=== PATIENT | female | born 1945 | race Caucasian/White ===

== ENCOUNTER 2018-03-31 18:13 | Inpatient (IN) | payer MEDICARE ==
[~2018-03-31] VITALS: Ht 165.1 cm; Wt 74.1 kg
--- NOTE | ~2018-03-31 | CN ---
PATIENT NAME:GABRIELA BATES MEDICAL RECORD: [id number] : 49 LOCATION:D. D.2101 ADMIT DATE: 04/01/18 ACCOUNT: [id number] CONSULTING PHYSICIAN: JULIUS MAYA MD REFERRING PHYSICIAN: BIENVENIDO CRAFT MD DATE OF CONSULTATION: 04/02/2018 IDENTIFYING DATA: The patient is 73 years old and she is admitted to the hospital on a voluntary basis. CHIEF COMPLAINT: Hyperglycemia. HISTORY OF PRESENT ILLNESS: The patient was found at home yesterday by her niece. The patient was naked and yelling into the phone at no one. The phone was not connected. The patient was brought to the hospital quite confused and agitated and had a blood sugar of almost 500. She was initially stabilized there with a blood sugar reducing down to 300 and was referred for geropsych admission. At that time, I declined her because of her blood sugar. She was admitted to medicine where she has been further stabilized and she has a blood sugar this morning of 250. I saw her this morning, she is awake, alert and fully oriented. She has vague recollections about yesterday and says nothing like this has ever happened. She denies vegetative depressive symptoms, substance abuse, or psychotic symptoms. She confessed that she is not very good about following her diet even though she has been a diabetic for many years. She lives alone and is . She has no children. She has 2 brothers, one of whom is local and then a niece who regularly look in on her. She does not keep her own yard, but does her own housework even though she says that somewhat difficult at times. She manages her own financial affairs which are not complex, but she has a social security check and she pays her own utility bills and insurance premiums and has not had any problems doing so. She drives and takes herself to appointments in the grocery store, and cooks and prepares meals independently. MENTAL STATUS EXAMINATION: The patient is awake, alert and oriented to person, place, time and situation. Her mood is euthymic. Her affect is appropriate. Thought processes are circumstantial. She does have some mild cognitive impairment of her memory, concentration, and abstraction abilities. She has no thoughts of harming herself or others as well as no overt psychotic symptoms. ASSESSMENT: 1. Delirium secondary to hyperglycemia. 2. Rule out dementia. PLAN: The patient has a long history of diabetes. The symptoms yesterday may well be associated with an underlying cognitive impairment. She is denying any thoughts of harming herself or others and shows no evidence of acute or direct dangerousness. ASSESSMENT: Delirium. PLAN: The patient should be transferred home once medically stable. She does not meet criteria for inpatient psychiatric care based upon this one event. I think there are important thing she and her family should do regarding planning for her future and she has promised that she will try to do better in following her diabetic regimen. She is not psychotic. She is not suicidal or homicidal, CONSULT REPORT [id number] GABRIELA BATES nor she grossly disorganized or disabled. This simply is not a case that meets admission criteria and I did not even discuss the possibility with her, but I suspect she would have objected to coming to a psychiatric unit. Follow up should be with her primary care physician. I would recommend outpatient testing for cognitive deficits. TRANSINT:[id number] Voice Confirmation ID: [id number] DOCUMENT ID: [id number] JULIUS MAYA MD at 1428 CC: [id number] DICTATION DATE: 04/02/18 1058 [employer]IVE [employer] TEAM: 04/02/18 1332 ADM IN [facility] [address] [place] [address]
[2018-03-31] MEDS ORDERED: ZOCOR40 MG PO (18:16)
[2018-03-31] MEDS ORDERED: TOVIAZ8 MG PO (18:16)
[2018-03-31] MEDS ORDERED: ONGLYZA5 MG PO (18:16)
[2018-03-31] MEDS ORDERED: GLUCOPHAGE500 MG PO (18:17)
[2018-03-31 18:47] LABS: BASOPHILS 0.2 % (0-2); EOSINOPHILS 0.2 % (0-7); HEMATOCRIT 38.3 % (36.0-48.0); HEMOGLOBIN 12.7 g/dL (12-16); LYMPHOCYTES 15.7 % (15-50); MCH 28.9 pg (26.0-34.0); MCHC 33.2 g/dL (31.0-37.0); MEAN PLATELET VOLUME 11.1 fL (7.4-10.4); MONOCYTES 12.1 % (2-11); NEUTROPHILS 71.8 % (40-80); PLATELET COUNT 99 10x3/uL (130-400); RDW 13.1 % (11.5-14.5); WBC 5.1 10x3/uL (4.8-10.8)
[2018-03-31 19:07] LABS: ALBUMIN 2.8 g/dL (3.4-5.0); ANION GAP 14.4 mmol/L (8-16); BILIRUBIN - TOTAL 0.7 mg/dL (0.2-1.3); CREATININE - SERUM 1.5 mg/dL (0.6-1.3); POTASSIUM - SERUM 4.4 mmol/L (3.5-5.1); PROTEIN - SERUM 7.2 g/dL (6.4-8.2)
[2018-03-31 19:17] LABS: PLATELET ESTIMATE DECREASED
[2018-03-31 19:30] VITALS: BP 146/50
[2018-03-31 21:19] LABS: APPEARANCE CLEAR (CLEAR); COLOR YELLOW (YELLOW); SPECIFIC GRAVITY 1.015 (1.005-1.020)
[2018-03-31 21:21] LABS: BILIRUBIN NEGATIVE (NEGATIVE); GLUCOSE 1000 mg/dL (NEGATIVE); KETONE MODERATE mg/dL (NEGATIVE); NITRITE NEGATIVE (NEGATIVE); PROTEIN NEGATIVE (NEGATIVE); UROBILINOGEN NORMAL (NORMAL)
[2018-03-31 21:22] LABS: EPITHELIAL CELLS 0-5 /hpf (0-5); RED CELLS - URINE 0-5 /hpf (0-5); WHITE CELLS - URINE 0-5 /hpf (0-5)
[2018-03-31 21:24] LABS: BACTERIA MANY /hpf (NONE SEEN)
[2018-03-31 21:30] VITALS: BP 166/78
[2018-03-31 23:00] VITALS: BP 131/58
[2018-04-01] VITALS (13 sets, daily range): BP systolic 119–160; BP diastolic 59–84; BMI 23.3
[2018-04-02 04:00] VITALS: BP 128/60
[2018-04-02 05:41] LABS: BASOPHILS 0.1 % (0-2); EOSINOPHILS 2.6 % (0-7); HEMATOCRIT 34.7 % (36.0-48.0); HEMOGLOBIN 11.6 g/dL (12-16); IMMATURE GRANULOCYTES 0.3 % (0-5); LYMPHOCYTES 23.4 % (15-50); MCH 28.4 pg (26.0-34.0); MCHC 33.4 g/dL (31.0-37.0); MEAN PLATELET VOLUME 11.1 fL (7.4-10.4); NEUTROPHILS 61.6 % (40-80); PLATELET COUNT 115 10x3/uL (130-400); RBC 4.09 10x6/uL (4.00-5.40); RDW 12.9 % (11.5-14.5)
[2018-04-02 05:47] LABS: MCV 84.8 fL (80.0-100.0)
[2018-04-02 06:36] LABS: ANION GAP 10.8 mmol/L (8-16); BILIRUBIN - TOTAL 0.61 mg/dL (0.2-1.3); CALCIUM 7.9 mg/dL (8.5-10.1); CREATININE - SERUM 1.2 mg/dL (0.6-1.3); MAGNESIUM - SERUM 1.7 mg/dL (1.8-2.4); POTASSIUM - SERUM 3.8 mmol/L (3.5-5.1); PROTEIN - SERUM 5.5 g/dL (6.4-8.2)
[2018-04-02 08:37] VITALS: BP 141/94
[2018-04-02 12:27] VITALS: BP 120/69
[2018-04-02 20:00] VITALS: BP 112/54
[2018-04-03] VITALS: BP 118/47
[2018-04-03 04:00] VITALS: BP 132/55
[2018-04-03 05:08] LABS: BASOPHILS 0.3 % (0-2); HEMATOCRIT 33.6 % (36.0-48.0); HEMOGLOBIN 11.2 g/dL (12-16); IMMATURE GRANULOCYTES 0.6 % (0-5); LYMPHOCYTES 21.7 % (15-50); MCH 28.2 pg (26.0-34.0); MCHC 33.3 g/dL (31.0-37.0); MCV 84.6 fL (80.0-100.0); MEAN PLATELET VOLUME 11.6 fL (7.4-10.4); MONOCYTES 12.5 % (2-11); NEUTROPHILS 61.9 % (40-80); PLATELET COUNT 115 10x3/uL (130-400); RBC 3.97 10x6/uL (4.00-5.40); WBC 6.3 10x3/uL (4.8-10.8)
[2018-04-03 05:47] LABS: ALBUMIN 2.1 g/dL (3.4-5.0); ANION GAP 10.6 mmol/L (8-16); BILIRUBIN - TOTAL 0.53 mg/dL (0.2-1.3); CARBON DIOXIDE 25.3 mmol/L (21.0-32.0); CREATININE - SERUM 1.1 mg/dL (0.6-1.3); MAGNESIUM - SERUM 1.7 mg/dL (1.8-2.4); POTASSIUM - SERUM 3.9 mmol/L (3.5-5.1); PROTEIN - SERUM 5.4 g/dL (6.4-8.2)
[2018-04-03 09:39] VITALS: BP 131/68
[2018-04-03 12:29] VITALS: Ht 165.1 cm; Wt 74.1 kg
[2018-04-03 12:32] VITALS: BP 151/65
[2018-04-03 17:05] VITALS: BP 136/58
[2018-04-03 20:36] VITALS: BP 156/59
[2018-04-04 04:59] VITALS: BP 144/78
[2018-04-04 06:06] LABS: BASOPHILS 0.2 % (0-2); EOSINOPHILS 3.1 % (0-7); HEMOGLOBIN 11.4 g/dL (12-16); IMMATURE GRANULOCYTES 0.5 % (0-5); LYMPHOCYTES 32.6 % (15-50); MCH 28.5 pg (26.0-34.0); MCHC 33.5 g/dL (31.0-37.0); NEUTROPHILS 51.6 % (40-80); PLATELET COUNT 135 10x3/uL (130-400); RDW 13.1 % (11.5-14.5); WBC 5.8 10x3/uL (4.8-10.8)
[2018-04-04 06:29] LABS: ANION GAP 12.5 mmol/L (8-16); BILIRUBIN - TOTAL 0.46 mg/dL (0.2-1.3); CALCIUM 7.9 mg/dL (8.5-10.1); CARBON DIOXIDE 24.3 mmol/L (21.0-32.0); POTASSIUM - SERUM 3.8 mmol/L (3.5-5.1); PROTEIN - SERUM 5.5 g/dL (6.4-8.2)
[2018-04-04 08:27] VITALS: BP 155/73
[2018-04-04] MEDS ORDERED: LEVAQUIN750 MG PO (10:50)
[2018-04-04] MEDS ORDERED: FLORAJEN3 CAPS460 MG PO (10:51)
[2018-04-04] MEDS ORDERED: PROTONIX40 MG PO (10:51)
[2018-04-04 12:02] VITALS: BP 155/73
== END 2018-04-04 18:49 | disposition home health service (06) | DRG 637 ==
LOC: OBSVTIME → D.ER 18:13 → D.EDHOLD 04-01 07:14 → D.M2 04-01 07:14 → D.ER 04-01 08:28 → D.M2 04-01 08:28 → D.EDHOLD 04-01 08:28 → OBSVTIME 04-01 08:28 → D.M2 04-01 09:39 → D.EDHOLD 04-01 09:39 → D.M2 04-01 16:08
PROVIDERS: Family Medicine; Family Medicine Adult Medicine
DX: E13.65 Other specified diabetes mellitus with hyperglycemia (principal); G93.41 Metabolic encephalopathy; N39.0 Urinary tract infection, site not specified; N17.9 Acute kidney failure, unspecified; D69.6 Thrombocytopenia, unspecified

== ENCOUNTER 2019-06-01 12:48 | Emergency (ER) | payer MEDICARE ==
[~2019-06-01] VITALS: Ht 165.1 cm; Wt 72.7 kg
[~2019-06-01 12:48] MED LIST: FLORAJEN3 CAPS460 MG PO; GLUCOPHAGE500 MG PO; LEVAQUIN750 MG PO; ONGLYZA5 MG PO; PROTONIX40 MG PO; TOVIAZ8 MG PO; ZOCOR40 MG PO
[2019-06-01 12:56] VITALS: Ht 165.1 cm; Wt 72.7 kg
[2019-06-01] MEDS ORDERED: HYDROCODON-ACE1 EAC7 PO (15:32)
[2019-06-01 16:03] VITALS: BP 178/84
== END 2019-06-01 16:05 | disposition home or self-care (01) ==
LOC: D.ER 12:48
DX: M54.2 Cervicalgia (principal); V89.2XXA Person injured in unspecified motor-vehicle accident, traffic, initial encounter

== ENCOUNTER 2019-09-19 13:52 | Emergency (ER) | payer MEDICARE ==
[~2019-09-19] VITALS: Ht 165.1 cm; Wt 2.1 kg
[~2019-09-19 13:52] MED LIST changes: +HYDROCODON-ACE1 EAC7 PO
[2019-09-19 14:26] LABS: CALC OSMOLALITY 289 mosm/kg (275-300); CALCIUM 9.3 mg/dL (8.5-10.1); CARBON DIOXIDE 29.8 mmol/L (21.0-32.0); CHLORIDE - SERUM 102 mmol/L (98-107); CREATININE - SERUM 1.4 mg/dL (0.6-1.3); POTASSIUM - SERUM 4.7 mmol/L (3.5-5.1); SODIUM 138 mmol/L (136-145); UREA NITROGEN 21 mg/dL (7-18); eGFR NON AFRICAN AMERICAN 39 mL/min (90-120)
[2019-09-19 14:28] LABS: GLUCOSE 304 mg/dL (74-106)
[2019-09-19 14:40] LABS: APTT 28.2 SECONDS (22.8-39.4); INR 1.03 (0.85-1.17); PROTIME 13.4 SECONDS (11.6-15.0)
[2019-09-19 14:42] LABS: ALBUMIN 3.6 g/dL (3.4-5.0); ALKALINE PHOSPHATASE 62 U/L (30-120); ALT (SGPT) 43 U/L (10-68); BILIRUBIN - TOTAL 0.72 mg/dL (0.2-1.3); CKMB 0.8 U/L (0.0-3.6); CREATINE KINASE 66 UL (21-215); MAGNESIUM - SERUM 1.3 mg/dL (1.8-2.4); PROTEIN - SERUM 7.2 g/dL (6.4-8.2); THYROID STIMULATING HORMONE 1.54 uIU/mL (0.36-3.74)
[2019-09-19 14:43] LABS: TROPONIN-I < 0.017 ng/mL (0.000-0.060)
[2019-09-19 14:46] LABS: BASOPHILS 0.2 % (0-2); EOSINOPHILS 2.2 % (0-7); HEMATOCRIT 35.8 % (36.0-48.0); IMMATURE GRANULOCYTES 0.2 % (0-5); LYMPHOCYTES 33.5 % (15-50); MCH 29.1 pg (26.0-34.0); MCHC 33.5 g/dL (31.0-37.0); MCV 86.7 fL (80.0-100.0); MEAN PLATELET VOLUME 11.6 fL (7.4-10.4); MONOCYTES 8.1 % (2-11); NEUTROPHILS 55.8 % (40-80); PLATELET COUNT 156 10x3/uL (130-400); RBC 4.13 10x6/uL (4.00-5.40); RDW 12.6 % (11.5-14.5); WBC 5.5 10x3/uL (4.8-10.8)
[2019-09-19 14:48] VITALS: Ht 165.1 cm; Wt 2.1 kg
[2019-09-19 20:30] VITALS: BP 168/87
== END 2019-09-19 20:30 | disposition short-term general hospital (02) ==
LOC: D.ER 13:52
PROVIDERS: Family Medicine
DX: G45.9 Transient cerebral ischemic attack, unspecified (principal); E11.9 Type 2 diabetes mellitus without complications; F03.90 Unspecified dementia, unspecified severity, without behavioral disturbance, psychotic disturbance, mood disturbance, and anxiety; Z79.84 Long term (current) use of oral hypoglycemic drugs